=== PATIENT | female | born 1985 | race Hispanic/Latino ===

== ENCOUNTER 2021-04-19 17:28 | Emergency (ER) | payer OTHER ==
[~2021-04-19] VITALS: Ht 162.6 cm; Wt 108.0 kg
[2021-04-19] MEDS ORDERED: EXCETAB33 PO (17:53)
[2021-04-19] MEDS ORDERED: NS 1,000 ML IV ONE (21:00)
[2021-04-19] MEDS ORDERED: METOCLOPRAMIDE INJ 10MG/2ML VIAL (J2765 PER 1) IV ONE (21:00)
[2021-04-19] MEDS ORDERED: KETOROLAC 30 MG/ML 1ML VIAL IV ONE (21:00)
[2021-04-19 21:30] LABS: BASO # 0.1 10^3/uL (0.0-0.2); BASO % 0.4 % (0.0-1.0); EOS # 0.2 10^3/uL (0.0-0.5); EOS % 1.3 % (0.0-3.0); HEMATOCRIT 40.9 % (36.0-47.0); HEMOGLOBIN 13.6 g/dl (12.0-15.5); LYMPH # 3.4 10^3/uL (1.5-5.0); LYMPH % 22.4 % (24.0-44.0); MEAN CORPUSCULAR HEMOGLOBIN 27.9 pg (27.0-33.0); MEAN CORPUSCULAR HGB CONC 33.3 g/dl (32.0-36.5); MONO % 6.7 % (2.0-8.0); NEUTROPHILS # 10.5 10^3/uL (1.5-8.5); NEUTROPHILS % 68.7 % (36.0-66.0); PLATELET COUNT, AUTOMATED 401 10^3/uL (150-450); RED BLOOD COUNT 4.87 10^6/uL (4.00-5.40); WHITE BLOOD COUNT 15.3 10^3/uL (4.0-10.0)
[2021-04-19 21:49] LABS: ERYTHROCYTE SEDIMENTATION RATE 31 mm/hr (0-20)
[2021-04-19] MEDS ORDERED: dexameTHASONE 20MG/5ML VIAL (J1100 PER 1MG) IV ONE (23:45)
[2021-04-19] MEDS ORDERED: TOPIRAMATE (TopAMAX) 25 MG TAB PO ONE (23:50)
[2021-04-20] MEDS ORDERED: IBUPROFEN 600MG TAB PO ONE (00:10)
[2021-04-20] MEDS ORDERED: TOPA50TA8 PO (00:13)
[2021-04-20] MEDS ORDERED: IBUP-1022 PO (00:14)
[2021-04-20 00:56] VITALS: BP 121/58
[2021-04-21 16:07] LABS: Lyme Disease IgG/IgM Antibodie <0.91 ISR (0.00-0.90); Lyme Disease IgM Ab Quantitati <0.80 index (0.00-0.79)
== END 2021-04-20 01:02 | disposition home or self-care (01) ==
LOC: M ED 17:28
DX: R51.9 Headache, unspecified (principal)
CPT/HCPCS: 70450; 80047; 83735; 84702; 85025; 85652; 86617; 96361; 96374; 96375; 99284; J1100; J1885; J2765

== ENCOUNTER 2021-05-18 18:42 | Emergency (ER) | payer OTHER ==
[~2021-05-18] VITALS: Ht 162.6 cm; Wt 102.7 kg
[~2021-05-18 18:42] MED LIST: EXCETAB33 PO; IBUP-1022 PO; TOPA50TA8 PO
[2021-05-18] MEDS ORDERED: ACET-683 PO (18:53)
[2021-05-18] MEDS ORDERED: ONDANSETRON 4 MG TAB PO ONE ×2 (20:25→21:25)
[2021-05-18 20:43] LABS: BASO # 0.1 10^3/uL (0.0-0.2); BASO % 0.4 % (0.0-1.0); EOS # 0.3 10^3/uL (0.0-0.5); EOS % 2.1 % (0.0-3.0); HEMATOCRIT 38.8 % (36.0-47.0); HEMOGLOBIN 13.1 g/dl (12.0-15.5); LYMPH # 3.3 10^3/uL (1.5-5.0); LYMPH % 26.4 % (24.0-44.0); MEAN CORPUSCULAR HEMOGLOBIN 28.4 pg (27.0-33.0); MEAN CORPUSCULAR HGB CONC 33.8 g/dl (32.0-36.5); MONO # 0.8 10^3/uL (0.0-0.8); MONO % 6.5 % (2.0-8.0); NEUTROPHILS # 8.1 10^3/uL (1.5-8.5); NEUTROPHILS % 64.1 % (36.0-66.0); PLATELET COUNT, AUTOMATED 372 10^3/uL (150-450); RED BLOOD COUNT 4.62 10^6/uL (4.00-5.40); WHITE BLOOD COUNT 12.6 10^3/uL (4.0-10.0)
[2021-05-18 21:12] LABS: ALBUMIN 3.7 GM/DL (3.2-5.2); ALT/SGPT 27 U/L (12-78); BILIRUBIN,TOTAL 0.2 MG/DL (0.2-1.0); BLOOD UREA NITROGEN 15 MG/DL (7-18); CALCIUM LEVEL 8.4 MG/DL (8.5-10.1); CARBON DIOXIDE LEVEL 27 MEQ/L (21-32); CHLORIDE LEVEL 108 MEQ/L (98-107); CREATININE FOR GFR 0.89 MG/DL (0.55-1.30); GLOMERULAR FILTRATION RATE > 60.0 (>60); GLUCOSE, FASTING 83 MG/DL (70-100); SODIUM LEVEL 141 MEQ/L (136-145); TOTAL PROTEIN 7.3 GM/DL (6.4-8.2)
[2021-05-18] MEDS ORDERED: ZOFR4TAB16 PO (21:19)
[2021-05-18 21:35] VITALS: BP 138/70
== END 2021-05-18 21:36 | disposition home or self-care (01) ==
LOC: M ED 18:42
DX: R11.0 Nausea (principal)

== ENCOUNTER 2021-06-12 16:52 | Emergency (ER) | payer OTHER ==
[~2021-06-12] VITALS: Ht 167.6 cm; Wt 99.7 kg
[~2021-06-12 16:52] MED LIST changes: +ACET-683 PO; +ZOFR4TAB16 PO
[2021-06-12] MEDS ORDERED: FAMO10TA50 PO (17:26)
[2021-06-12] MEDS ORDERED: HOME MED LIST COMPLETE! XX SCH (20:35)
[2021-06-12] MEDS ORDERED: VITA100T59 PO (20:35)
[2021-06-12] MEDS ORDERED: BLAC1CAP2 PO (20:35)
[2021-06-12 21:07] LABS: BASO # 0.1 10^3/uL (0.0-0.2); BASO % 0.6 % (0.0-1.0); EOS # 0.2 10^3/uL (0.0-0.5); EOS % 1.3 % (0.0-3.0); HEMATOCRIT 41.3 % (36.0-47.0); LYMPH # 3.8 10^3/uL (1.5-5.0); LYMPH % 28.6 % (24.0-44.0); MEAN CORPUSCULAR HEMOGLOBIN 28.3 pg (27.0-33.0); MEAN CORPUSCULAR HGB CONC 33.9 g/dl (32.0-36.5); MEAN CORPUSCULAR VOLUME 83.4 fl (80.0-96.0); MONO # 1.1 10^3/uL (0.0-0.8); MONO % 7.9 % (2.0-8.0); NEUTROPHILS # 8.2 10^3/uL (1.5-8.5); NEUTROPHILS % 61.2 % (36.0-66.0); PLATELET COUNT, AUTOMATED 423 10^3/uL (150-450); RED BLOOD COUNT 4.95 10^6/uL (4.00-5.40); WHITE BLOOD COUNT 13.3 10^3/uL (4.0-10.0)
[2021-06-12 21:28] LABS: ALBUMIN 3.7 GM/DL (3.2-5.2); BILIRUBIN,DIRECT 0.1 MG/DL (0.0-0.2); BILIRUBIN,TOTAL 0.4 MG/DL (0.2-1.0); TOTAL PROTEIN 7.4 GM/DL (6.4-8.2)
[2021-06-12 21:29] LABS: CK-MB VALUE MASS < 1.0 NG/ML (<3.6); CPK CREATINE PHOSPHOKINASE 49 U/L (26-192); MB/CK RELATIVE INDEX 2.04 (< OR =4)
[2021-06-12 21:42] VITALS: BP 125/69
== END 2021-06-12 22:09 | disposition home or self-care (01) ==
LOC: M ED 16:52
DX: R07.89 Other chest pain (principal); F41.9 Anxiety disorder, unspecified; K21.9 Gastro-esophageal reflux disease without esophagitis

== ENCOUNTER 2021-06-23 10:46 | Emergency (ER) | payer OTHER ==
[~2021-06-23] VITALS: Ht 162.6 cm; Wt 98.8 kg
[~2021-06-23 10:46] MED LIST changes: +BLAC1CAP2 PO; +FAMO10TA50 PO; +VITA100T59 PO
[2021-06-23] MEDS ORDERED: OMEP-173 (10:54)
[2021-06-23] MEDS ORDERED: TRAN1DIS4 (10:54)
[2021-06-23] MEDS ORDERED: GI COCKTAIL 50ML BTL(HYOSCYAMINE/MAALOX/LIDOCAINE VISCOUS)(1:3:1) PO ONE (11:30)
[2021-06-23] MEDS ORDERED: FAMOTIDINE 20 MG TAB PO ONE (11:30)
[2021-06-23] MEDS ORDERED: SUCRALFATE 1 GM TAB PO ONE (11:30)
[2021-06-23] MEDS ORDERED: METOCLOPRAMIDE 10MG TAB PO ONE (11:30)
[2021-06-23 12:11] LABS: BASO % 0.4 % (0.0-1.0); EOS # 0.2 10^3/uL (0.0-0.5); EOS % 1.8 % (0.0-3.0); HEMATOCRIT 39.6 % (36.0-47.0); HEMOGLOBIN 13.4 g/dl (12.0-15.5); LYMPH # 2.5 10^3/uL (1.5-5.0); LYMPH % 25.5 % (24.0-44.0); MEAN CORPUSCULAR HEMOGLOBIN 28.3 pg (27.0-33.0); MEAN CORPUSCULAR HGB CONC 33.8 g/dl (32.0-36.5); MEAN CORPUSCULAR VOLUME 83.5 fl (80.0-96.0); MONO # 0.8 10^3/uL (0.0-0.8); MONO % 8.3 % (2.0-8.0); NEUTROPHILS # 6.1 10^3/uL (1.5-8.5); NEUTROPHILS % 63.7 % (36.0-66.0); PLATELET COUNT, AUTOMATED 329 10^3/uL (150-450); RED BLOOD COUNT 4.74 10^6/uL (4.00-5.40); WHITE BLOOD COUNT 9.6 10^3/uL (4.0-10.0)
[2021-06-23 12:31] LABS: ALBUMIN 3.7 GM/DL (3.2-5.2); ALT/SGPT 53 U/L (12-78); BILIRUBIN,DIRECT 0.2 MG/DL (0.0-0.2); BILIRUBIN,TOTAL 0.5 MG/DL (0.2-1.0); BLOOD UREA NITROGEN 5 MG/DL (7-18); CALCIUM LEVEL 8.8 MG/DL (8.5-10.1); CARBON DIOXIDE LEVEL 26 MEQ/L (21-32); CHLORIDE LEVEL 107 MEQ/L (98-107); CREATININE FOR GFR 0.61 MG/DL (0.55-1.30); GLOMERULAR FILTRATION RATE > 60.0 (>60); GLUCOSE, FASTING 99 MG/DL (70-100); LIPASE 120 U/L (73-393); SODIUM LEVEL 139 MEQ/L (136-145); TOTAL PROTEIN 7.2 GM/DL (6.4-8.2)
[2021-06-23 12:36] LABS: HCG, SERUM QUALITATIVE NEGATIVE (NEGATIVE)
[2021-06-23] MEDS ORDERED: REGL10TA6 PO (13:04)
[2021-06-23] MEDS ORDERED: OMEP-173 PO (13:04)
[2021-06-23] MEDS ORDERED: CARA1TAB6 PO (13:04)
[2021-06-23 13:13] VITALS: BP 135/70
== END 2021-06-23 13:20 | disposition home or self-care (01) ==
LOC: M ED 10:46
DX: K80.20 Calculus of gallbladder without cholecystitis without obstruction (principal); R10.13 Epigastric pain; R11.0 Nausea; K21.9 Gastro-esophageal reflux disease without esophagitis; Z79.899 Other long term (current) drug therapy